=== PATIENT | male | born 1950 | race Hispanic/Latino ===

== ENCOUNTER 2019-02-03 14:54 | Inpatient (IN) | payer MEDICARE ==
[2019-02-03 16:04] LABS: Anion Gap 17 mmol/L (10-20); BUN (Urea Nitrogen) 78 mg/dL (8.4-25.7); Calc. Creatinine Clearance 0 mL/min (70-130); Calcium 8.2 mg/dL (7.8-10.44); Carbon Dioxide 17 mmol/L (23-31); Chloride 108 mmol/L (98-107); Estimated GFR-MDRD 10; Glucose 95 mg/dL (80-115); Potassium 4.7 mmol/L (3.5-5.1); Sodium 137 mmol/L (136-145)
[2019-02-03 16:49] LABS: Bilirubin Negative (Negative); Blood, Urine 1+ (Negative); Clarity Turbid (Clear); Glucose, Urine (Dipstick) Normal (Negative); Leukocyte Negative Leu/uL (Negative); Nitrite Negative (Negative); Protein, Urine (Dipstick) 50 mg/dL (Neg-Trace); Squamous Epithelial 0-3 HPF (0-3); Urobilinogen Normal mg/dL (Less than 2)
[2019-02-03 16:57] LABS: Bacteria/HPF None Seen HPF (None Seen)
[2019-02-03] MEDS ORDERED: Acetaminophen 325 MG TAB PO PRN (17:49)
[2019-02-03] MEDS: Sodium Chloride 0.9% 1,000 ML IV SCH (18:13)
[2019-02-03] MEDS: Heparin 5,000 UNITS/ML VIAL SC SCH (19:08)
--- NOTE | 2019-02-03 19:23 | ULT ---
US Renal Bilateral STANDARD History: Acute renal failure Comparison: None. Findings: Right kidney measures 10.1 x 5.8 x 5.1 cm and the left kidney measures 9.4 x 5.7 x 5.5 cm. Prostate is enlarged. Urinary bladder is unremarkable with prevoid volume of 42 mL. No renal mass, hydronephrosis, or abnormal calcifications. Impression: No evidence for obstructive uropathy. Markedly enlarged prostate.
--- NOTE | 2019-02-03 19:58 | PDOC.EVN ---
Event Note - Event Note Event Note: Spoke to Dr. Mckeon with sound. This patient's PCP is Dr. Brennan so should be admitted to the residents. He has already completed admission so we will assume care at this point. He gave checkout about patient's status -Patient appears to be in acute renal failure of unknown cause. Getting fluids and a nephrology consult at this time.
[2019-02-03 22:14] LABS: Magnesium 2.6 mg/dL (1.6-2.6); Phosphorus 5.1 mg/dL (2.3-4.7)
--- NOTE | 2019-02-04 00:40 | HP ---
CHIEF COMPLAINT: Back and head pain. HISTORY OF PRESENT ILLNESS: This patient is a 68-year-old Kyrgyz-speaking male who was interviewed with the use of [employer] deaf interpreter. The patient reports that he was experiencing some headache and back pain starting on 02/02. He has also had some decreased urine output during that time, although he reports the urine has remained yellow and not overly dark. He felt so bad that he could not go to work today and was instructed by his boss to go see the doctor when he did he was noted to have significant hypotension. They tried to send him to the ER via ambulance. However, he decided to go by a private vehicle and he was seen in the emergency department in [facility]. There, the patient had a blood pressure of systolic in the 80s. He received 2 L of IV fluids and his blood pressure normalized. However, his labs revealed acute renal failure. Subsequently, the patient was transferred to this facility. Here, the patient had a Nru catheter placed with only about 200 mL of relatively normal-appearing urine obtained. REVIEW OF SYSTEMS: The patient had a very small bout of loose stools today. He has had some nausea over the last couple of days. He has had normal appetite and believes he has had normal p.o. intake. He does report cramping in his muscles and some blurred vision in relation to all this as well. PAST MEDICAL HISTORY: Notable for hypertension and hyperlipidemia. PAST SURGICAL HISTORY: None. FAMILY HISTORY: The patient is unaware of any specific medical issues with his parents. SOCIAL HISTORY: The patient is a nonsmoker, nondrinker, and nondrug user. He still works a little bit, but nothing strenuous. He is full code. He lives at home with his son and his son or daughter would be his surrogate decision makers. PHYSICAL EXAMINATION: VITAL SIGNS: Temperature 97.7, pulse 61, respirations 24, BP 120/62, O2 saturation 98% on room air. GENERAL APPEARANCE: Age-appropriate male, in no distress. Awake, alert, oriented, pleasant, cooperative. HEENT: Arcus senilis, but PERRL. No OP lesions. NECK: Supple and symmetric. HEART: Regular rate and rhythm. No murmurs, gallops, or rubs. LUNGS: Clear to auscultation bilaterally with good chest wall expansion and air exchange. ABDOMEN: Soft. Nontender other than some very mild left lower quadrant tenderness to deep palpation. No guarding. No rebound. EXTREMITIES: No cyanosis, clubbing, or edema. PSYCH: Normal affect and behavior. NEURO: The patient appears to be fully intact. Cranial nerves are appropriate. He has normal cognition. No focal deficits. LABORATORY DATA: White count 5.7, hemoglobin 15.9, platelets 273. Sodium 139, potassium 4.3, chloride 100, CO2 18, BUN 80, creatinine 7.34, glucose 120, lactic acid 1.5, calcium 10.2. LFTs normal. Troponin 0.01. Albumin is 5.2, total protein is 8, globulin 3.6. Urinalysis, turbid yellow urine, specific gravity 1.020, 1+ blood with 4 to 6 red cells, 4 to 6 white cells, leukocyte esterase is negative, amorphous crystals 3+, hyaline casts 7 to 10. Chest x-ray is negative. IMPRESSION AND PLAN: 1. Acute renal failure of unclear etiology. The patient is receiving aggressive IV fluid hydration. We will get a renal ultrasound, nephrology consult, and hold his ALCON inhibitor for the time being. Does not appear to be in obstructive uropathy. 2. Acidosis secondary to the acute renal insufficiency. 3. History of hypertension, holding his medications for now. If his blood pressure becomes problematic, we will add something non nephrotoxic. 4. History of hyperlipidemia. We will resume his p.o. statin. 5. Cephalgia secondary to the renal insufficiency and hypotension. 6. Hypotension, appears to be possibly related to some dehydration as it responded very quickly to fluid resuscitation challenges that the patient appears to have been eating and drinking and has no apparent reason for having dehydration. We will continue to follow. At this point he is normalized. Job ID: [id number] [facility]
--- NOTE | 2019-02-04 02:49 | CON ---
DATE OF CONSULTATION: REQUESTING PHYSICIAN: ER physician. REASON FOR CONSULTATION: Acute kidney injury. IMPRESSION: 1. Acute kidney injury, this is likely hemodynamically mediated in the context of poor p.o. intake resulting in hypotension, lasted long enough to progress to #2. 2. Acute tubular necrosis. PLAN: 1. Rehydrate this patient. 2. There is no emergent indication for renal replacement therapy at this point, though this could change depending on the clinical status of this patient. 3. Renally dose all medications and avoid potentially nephrotoxic agents. HISTORY OF PRESENT ILLNESS: A 68-year-old gentleman who was brought in because of weakness and dizziness, but on presentation, the patient noted to be in severe renal failure. The patient of course noted to be hypotensive that required several liters of fluid to stabilize the hemodynamics of this patient. At this time of dictation, the patient is hemodynamically stable. PAST MEDICAL HISTORY: Significant for dyslipidemia, hypertension. REVIEW OF SYSTEMS: As documented in the body of history. All the other systems were reviewed and found not to be significantly related to present illness. SUMMARY: A 68-year-old gentleman who has been down 3 days prior to presentation to the ED, noted to be hypotensive, and in obvious renal failure. Thank you for this consultation. We will follow with you. Job ID: [id number]
[2019-02-04] MEDS: Sodium Chloride 0.9% 1,000 ML IV SCH (03:25)
[2019-02-04 06:07] LABS: #Eosinphils 0.2 thou/uL (0.0-0.7); #Monocytes 0.5 thou/uL (0.11-0.59); #Neutrophils 4.7 thou/uL (1.40-6.50); %Basophils 0.8 % (0.0-1.0); %Eosinophils 2.8 % (0.0-10.0); %Lymphocytes 15.7 % (21.0-51.0); %Monocytes 8.1 % (0.0-10.0); %Neutrophils 72.7 % (42.0-75.0); Hemoglobin 12.8 g/dL (14.0-18.0); Mean Corpuscular HGB CONC 34.3 g/dL (32.0-36.0); Mean Corpuscular Hemoglobin 30.1 pg (27.0-31.0); Mean Corpuscular Volume 87.7 fL (78.0-98.0); Mean Platelet Volume 7.9 fL (7.4-10.4); Platelet Count 210 thou/uL (130-400); RBC Distribution Width 12.6 % (11.5-14.5); Red Blood Cell (RBC) Count 4.27 mill/uL (4.70-6.10); White Blood Cell (WBC) Count 6.4 thou/uL (4.8-10.8)
--- NOTE | 2019-02-04 06:18 | PDOC.FM ---
- Subjective Subjective: Patient doing well overnight. Complains that it stewart to pee and he feels like he needs to urinate constantly. Denies chest pain, shortness of breath, nausea, vomiting, diarrhea, constipation, history of kidney problems, decreased po intake. - Objective MAR Reviewed: Yes Vital Signs & Weight: Vital Signs (12 hours) Temp Pulse Resp BP Pulse Ox 02/04/19 03:55 98.4 F 58 L 16 158/79 H 98 02/04/19 00:00 98.1 F 60 18 170/92 H 97 02/03/19 20:00 97 02/03/19 19:10 97.8 F 54 L 20 123/72 97 Weight Weight 75.8 kg I&O: Net: 500+ mL Urine output: 850mL Result Diagrams: 02/04/19 05:56 02/04/19 05:56 Additional Labs: Laboratory Tests 02/03/19 02/03/19 02/03/19 11:50 11:50 15:36 Sodium 139 137 Potassium 4.3 4.7 Chloride 100 108 H Carbon Dioxide 18 L 17 L Anion Gap 25 H 17 BUN 80 H 78 H Creatinine 7.34 H 5.83 H Estimated GFR (MDRD) 7 10 Lactic Acid 1.5 Radiology Reviewed by me: Yes (Renal US: No obstructive uropathy. Markedly enlarged prostate. ) Phys Exam - Physical Examination Constitutional: NAD diaphoretic, poor hygeine HEENT: PERRLA, moist MMs, sclera anicteric Neck: supple, full ROM Respiratory: no wheezing, no rales, no rhonchi, clear to auscultation bilateral Cardiovascular: RRR, no significant murmur, no rub Gastrointestinal: soft, non-tender, no distention, positive bowel sounds Musculoskeletal: no edema, pulses present Neurological: non-focal, moves all 4 limbs Psychiatric: normal affect, A&O x 3 Skin: no rash, cap refill <2 seconds Dx/Plan - Plan Plan: 68yo , Mongolian speaking male, who presented to the ED for headache, back pain and dizziness. Acute renal failure Unknown etiology, possibly secondary to dehydration. Creatinine 7.34 on admission, repeat 5.83. Will continue to monitor. Fluid resuscitation with IV Normal Saline @ 125mL/hour. He received 2L in the [place] ED. Avoid nephrotoxic agents and renally dose medications. Nephrology consulted, appreciate recommendations. Acute tubular necrosis Hyaline casts seen on UA. Dyslipidemia Simvastatin 40mg Hypertension HOLD HOME MED: Lisinopril 40mg at home. Hydralazine 10mg IV prn for SBP > 180. Will continue to monitor. Dispo: Stable, inpatient Code: Full VTE: SCDs
[2019-02-04 06:37] LABS: Anion Gap 11 mmol/L (10-20); BUN (Urea Nitrogen) 64 mg/dL (8.4-25.7); Calc. Creatinine Clearance 26 mL/min (70-130); Calcium 8.3 mg/dL (7.8-10.44); Carbon Dioxide 17 mmol/L (23-31); Chloride 112 mmol/L (98-107); Estimated GFR-MDRD 22; Glucose 97 mg/dL (80-115); Potassium 4.2 mmol/L (3.5-5.1); Sodium 136 mmol/L (136-145)
[2019-02-04] MEDS ORDERED: hydrALAZINE 20 MG/ML VIAL SLOW IVP PRN (07:00)
[2019-02-04] MEDS ORDERED: Sodium Chloride 0.9% 1,000 ML IV SCH (07:01)
[2019-02-04 07:37] LABS: Creatinine, Urine 323.42 mg/dL (63-166)
[2019-02-04] MEDS: Lactated Ringer's 1,000 ML IV SCH ×2 (08:16→16:45)
[2019-02-04] MEDS: Heparin 5,000 UNITS/ML VIAL SC SCH ×2 (08:17→22:58)
--- NOTE | 2019-02-04 12:20 | PRG ---
DATE OF SERVICE: 02/04/2019 Mr. Munoz is a pleasant 68-year-old male, who does not speak Azeri. He was initially admitted by Franca and was found to be one of our patients, had been transferred to our service. In the event yesterday, for several days have been having some back pain and headache as well as decreased urine output. He could not go to work and he is instructed by his boss to go see a doctor. He went to a facility and was found to be hypotensive. He eventually ended up in [facility] ER, was found to have systolic blood pressure in the 80s. He was given fluids and transferred to our facility for further ongoing care. He was found in our institution to have MICHELET and was seen in consultation by Dr. Pritchard. We appreciate his input. Dr. pritchard feels this is acute tubular necrosis in MICHELET secondary to his hypotension. He recommends that we continue with rehydration and fluid replacement. In the event, his creatinine has dropped from admission of 5.83 to 2.87. He has no electrolyte abnormalities. We will continue with judicious fluid replacement. Job ID: [id number]
--- NOTE | 2019-02-04 21:42 | PRG ---
DATE OF SERVICE: 02/04/2019 SUBJECTIVE: The patient was seen and examined. Noted with the following vital signs. OBJECTIVE: VITAL SIGNS: Afebrile, temperature 97.9, pulse 65, respiratory rate of 20, O2 saturation 100% with blood pressure 150/60. HEENT: Unremarkable. CARDIOVASCULAR SYSTEM: First and second heart sounds were heard. RESPIRATORY SYSTEM: Clear to auscultation. DIGESTIVE SYSTEM: Revealed a benign abdomen. Positive bowel sounds. EXTREMITIES: No peripheral edema. SKIN: No new gross rash. LYMPHATICS: No peripheral lymphadenopathy. LABORATORY INVESTIGATION: Significant for creatinine down to 2.87 with BUN of 64, bicarb of 17, potassium 4.2, phosphorus of 5.1. IMPRESSION: 1. Acute on chronic kidney disease in the context of hemodynamically mediated acute tubular necrosis, which is improving. 2. Metabolic acidosis. PLAN: 1. Discontinue current IV fluid (lactate and start this patient on a bicarb-based infusion at least overnight). 2. Continue renal supportive measures. 3. Avoid potentially nephrotoxic agents and renally dose all medications. 4. Further management to be dependent on the clinical course. Job ID: [id number]
[2019-02-04] MEDS: Sodium Bicarbonate 150 MEQ in Dextrose 5% in Water 1,000 ML IV SCH (22:58)
[2019-02-05 05:43] VITALS: BMI 25.3
--- NOTE | 2019-02-05 05:51 | PDOC.FM ---
- Subjective Subjective: Patient reports he did well overnight. He has no difficulty voiding, and the pain and burning has decreased. Denies chest pain, shortness of breath, nausea, vomiting. - Objective MAR Reviewed: Yes Vital Signs & Weight: Vital Signs (12 hours) Temp Pulse Resp BP Pulse Ox 02/05/19 00:00 98.2 F 54 L 20 113/62 95 02/04/19 20:00 100 02/04/19 18:53 97.9 F 55 L 20 150/60 H 100 Weight Weight 75.92 kg I&O: 02/03/19 02/04/19 02/05/19 06:59 06:59 06:59 Intake Total 1350 Output Total 850 Balance 500 Result Diagrams: 02/04/19 05:56 02/05/19 05:46 Phys Exam - Physical Examination Constitutional: NAD HEENT: moist MMs, sclera anicteric Neck: supple, full ROM Respiratory: no wheezing, no rales, no rhonchi, clear to auscultation bilateral Cardiovascular: RRR, no significant murmur, no rub Gastrointestinal: soft, non-tender, no distention, positive bowel sounds Musculoskeletal: no edema, pulses present Neurological: non-focal, moves all 4 limbs Psychiatric: normal affect, A&O x 3 Skin: no rash, normal turgor Dx/Plan - Plan Plan: 68yo , Brazilian speaking male, who presented to the ED for headache, back pain and dizziness. Acute renal failure Unknown etiology, possibly secondary to dehydration. Cr 7.34 > 5.83 > 2.87. Will continue to monitor. Fluid resuscitation D5 + 150meq Bicarb - per nephrology. Avoid nephrotoxic agents and renally dose medications. Nephrology consulted, appreciate recommendations. Potentially d/c home today, depending on Nephrology recommendations. Acute tubular necrosis Hyaline casts seen on UA. Dyslipidemia Simvastatin 40mg Hypertension HOLD HOME MED: Lisinopril 40mg at home. Hydralazine 10mg IV prn for SBP > 180. Will continue to monitor. Dispo: Stable, inpatient Code: Full VTE: SCDs
[2019-02-05 06:36] LABS: Anion Gap 9 mmol/L (10-20); BUN (Urea Nitrogen) 37 mg/dL (8.4-25.7); Calc. Creatinine Clearance 64 mL/min (70-130); Calcium 8.3 mg/dL (7.8-10.44); Carbon Dioxide 26 mmol/L (23-31); Chloride 108 mmol/L (98-107); Estimated GFR-MDRD 63; Glucose 101 mg/dL (80-115); Potassium 4.4 mmol/L (3.5-5.1); Sodium 139 mmol/L (136-145)
[2019-02-05] MEDS: Heparin 5,000 UNITS/ML VIAL SC SCH (07:59)
[2019-02-05] MEDS ORDERED: Tamsulosin HCl 0.4 MG CAP PO SCH (09:00)
[2019-02-05] MEDS: Sodium Bicarbonate 150 MEQ in Dextrose 5% in Water 1,000 ML IV SCH (09:42)
--- NOTE | 2019-02-05 11:54 | PRG ---
DATE OF SERVICE: 02/05/2019 Mr. Munoz looks and feels much better. His labs have improved markedly with his BUN now 37, creatinine is now 1.15. He was admitted with a BUN of 78 and a creatinine of 5.83. We appreciate the input from Dr. Pritchard. He had initiated a bicarb infusion because of a mild metabolic acidosis secondary to CKD and ATN. In the event, Mr. Munoz is likely ready for discharge today. Job ID: [id number]
[2019-02-05 12:08] VITALS: BP 154/80; TEMP 98.2
--- NOTE | 2019-02-05 21:22 | DIS ---
DATE OF ADMISSION: 02/03/2019 DATE OF DISCHARGE: 02/05/2019 CONSULTS: Nephrology, Dr. Pritchard. PROCEDURES: None. PRIMARY DIAGNOSIS: Acute renal failure with unclear etiology. SECONDARY DIAGNOSES: Acute tubular necrosis, hypertension, hyperlipidemia, and dehydration. DISCHARGE MEDICATIONS: Lisinopril 40, simvastatin 40, and tamsulosin 0.4 mg p.o. daily. DISCONTINUED MEDICATIONS: None. HISTORY OF PRESENT ILLNESS/HOSPITAL COURSE: Mr. Munoz is a 68-year-old male, who presented to the ED via a friend for headache and back pain that started on 02/02. He had noticed decreased urine output stating that his urine had remained yellow and was not dark. However, he stated that he felt that he could not go to work on the day of admission and was instructed by his boss to go see a doctor. He was noted to have significant hypotension at his doctor's office, which prompted his physician to send him to the ER via ambulance, however, he desired to go by private vehicle and was seen in the [place] emergency room. He had a blood pressure of systolic 80. He received 2 L of normal saline IV, which resolved his hypertension, however, labs revealed a creatinine of 7.34 indicating acute renal failure, which prompted his transfer to [place]. He denied any decrease in p.o. intake or excessive sweating. He is unsure why he was dehydrated. His creatinine normalized to 1.15 with aggressive fluid hydration. Dr. Pritchard was consulted and recommended that he be put on IV fluids containing bicarb secondary to his metabolic acidosis, which was corrected by the time of discharge. The patient did well with fluid resuscitation and symptoms resolved. DISPOSITION: Stable. DISCHARGE INSTRUCTIONS: Location: Home. Diet: Heart healthy. Activity: Ad duran. Followup: Follow up with primary care physician within 2 weeks. Job ID: [id number] [facility]
== END 2019-02-05 14:16 | disposition home or self-care (01) | DRG 683 ==
LOC: ERS 14:54 → T4-B 17:51
PROVIDERS: ADMIT Family Medicine; ATTEND Family Medicine
DX: N17.0 Acute kidney failure with tubular necrosis (principal); E87.2 Acidosis; F32.9 Major depressive disorder, single episode, unspecified; I95.9 Hypotension, unspecified; E86.0 Dehydration; I12.9 Hypertensive chronic kidney disease with stage 1 through stage 4 chronic kidney disease, or unspecified chronic kidney disease; N18.9 Chronic kidney disease, unspecified; E78.00 Pure hypercholesterolemia, unspecified; Z79.899 Other long term (current) drug therapy
CPT/HCPCS: 36415; 51702; 76770; 80048; 81003; 81015; 82570; 83735; 84100; 84156; 84300; 85025; 87086; J1644; J7070

== ENCOUNTER 2021-02-28 14:04 | Emergency (ER) | payer MEDICARE ==
[2021-02-28 14:53] LABS: #Lymphocytes 0.8 thou/uL (1.20-3.40); #Monocytes 0.5 thou/uL (0.11-0.59); #Neutrophils 6.2 thou/uL (1.40-6.50); %Basophils 0.1 % (0.0-1.0); %Eosinophils 0.1 % (0.0-10.0); %Lymphocytes 11.2 % (21.0-51.0); %Neutrophils 82.6 % (42.0-75.0); Hemoglobin 13.4 g/dL (14.0-18.0); Mean Corpuscular HGB CONC 32.3 g/dL (32.0-36.0); Mean Corpuscular Hemoglobin 28.5 pg (27.0-31.0); Mean Platelet Volume 7.5 fL (7.4-10.4); Platelet Count 224 thou/uL (130-400); RBC Distribution Width 11.8 % (11.5-14.5); White Blood Cell (WBC) Count 7.5 thou/uL (4.8-10.8)
[2021-02-28 15:24] LABS: Anion Gap 15 mmol/L (10-20); BUN (Urea Nitrogen) 20 mg/dL (8.4-25.7); Calc. Creatinine Clearance 0 mL/min (70-130); Carbon Dioxide 23 mmol/L (23-31); Chloride 101 mmol/L (98-107); Potassium 4.1 mmol/L (3.5-5.1); Sodium 135 mmol/L (136-145)
[2021-02-28 15:25] LABS: ALT (SGPT) 74 U/L (8-55); AST (SGOT) 80 U/L (5-34); Albumin 3.6 g/dL (3.4-4.8); Alkaline Phosphatase 172 U/L (40-110); Bilirubin, Total 1.2 mg/dL (0.2-1.2); Calcium 8.6 mg/dL (7.8-10.44); Globulin 2.8 g/dL (2.4-3.5); Glucose 111 mg/dL (83-110); Protein, Total 6.4 g/dL (5.8-8.1)
[2021-02-28 17:15] LABS: SARS-CoV-2 NAA Rapid Test DETECTED (NotDetected)
== END 2021-02-28 16:32 | disposition home or self-care (01) ==
LOC: ERS 14:04
DX: U07.1 COVID-19 (principal)
CPT/HCPCS: 71045; 80053; 83605; 83880; 84484; 85025; 93005; 99285; U0002; 36415

== ENCOUNTER 2023-10-16 11:33 | Inpatient (IN) | payer MEDICARE ==
[2023-10-08 10:10] VITALS: BMI 20.3
[2023-10-17 06:09] LABS: #Basophils 0.05 10x3/uL (0.0-0.2); %Basophils 0.5 % (0.0-1.0); %Eosinophils 0.7 % (0.0-10.0); %Lymphocytes 9.3 % (21.0-51.0); %Neutrophils 80.1 % (42.0-75.0); Hematocrit 32.9 % (42.0-52.0); Hemoglobin 10.9 g/dL (14.0-18.0); Mean Corpuscular HGB CONC 33.1 g/dL (32.0-36.0); Mean Corpuscular Hemoglobin 29.6 pg (27.0-31.0); Mean Corpuscular Volume 89.4 fL (78.0-98.0); Mean Platelet Volume 9.8 fL (7.4-10.4); Platelet Count 215 10x3/uL (130-400); RBC Distribution Width 13.4 % (11.5-14.5); Red Blood Cell (RBC) Count 3.68 mill/uL (4.70-6.10)
[2023-10-17 07:26] LABS: Anion Gap 10 mmol/L (10-20); BUN (Urea Nitrogen) 28 mg/dL (8.4-25.7); Calc. Creatinine Clearance 34 mL/min (70-130); Calcium 7.9 mg/dL (7.8-10.44); Carbon Dioxide 21 mmol/L (23-31); Chloride 111 mmol/L (98-107); Estimated GFR 48; Glucose 131 mg/dL (83-110); Sodium 138 mmol/L (136-145)
[2023-10-17 09:43] VITALS: BMI 20.3
[2023-10-18 05:48] LABS: Vancomycin, Random 20.9 ug/mL (See Comment)
[2023-10-18 08:24] LABS: #Basophils 0.05 10x3/uL (0.0-0.2); %Basophils 0.4 % (0.0-1.0); %Eosinophils 0.6 % (0.0-10.0); %Lymphocytes 7.3 % (21.0-51.0); %Monocytes 7.3 % (0.0-10.0); %Neutrophils 83.9 % (42.0-75.0); Hematocrit 32.3 % (42.0-52.0); Hemoglobin 10.5 g/dL (14.0-18.0); Mean Corpuscular HGB CONC 32.5 g/dL (32.0-36.0); Mean Corpuscular Hemoglobin 29.7 pg (27.0-31.0); Mean Corpuscular Volume 91.2 fL (78.0-98.0); Mean Platelet Volume 9.6 fL (7.4-10.4); Platelet Count 205 10x3/uL (130-400); RBC Distribution Width 13.5 % (11.5-14.5); Red Blood Cell (RBC) Count 3.54 mill/uL (4.70-6.10)
[2023-10-18 08:55] LABS: Anion Gap 12 mmol/L (10-20); BUN (Urea Nitrogen) 34 mg/dL (8.4-25.7); Calc. Creatinine Clearance 16 mL/min (70-130); Calcium 8.2 mg/dL (7.8-10.44); Carbon Dioxide 19 mmol/L (23-31); Chloride 111 mmol/L (98-107); Estimated GFR 20; Glucose 105 mg/dL (83-110); Potassium 4.6 mmol/L (3.5-5.1); Sodium 137 mmol/L (136-145)
[2023-10-18 12:44] VITALS: TEMP 97.7
[2023-10-18 18:01] VITALS: BP 158/87
== END 2023-10-18 18:18 | disposition home or self-care (01) | DRG 713 ==
LOC: SDC 11:33 → SURG A 20:01
PROVIDERS: ADMIT Urology; ATTEND Urology
PROC: 0VT08ZZ Resection of Prostate, Via Natural or Artificial Opening Endoscopic (ICD-10-PCS; principal; 2023-10-16)
PROC: 0TCB8ZZ Extirpation of Matter from Bladder, Via Natural or Artificial Opening Endoscopic (ICD-10-PCS; 2023-10-16)
DX: N40.1 Benign prostatic hyperplasia with lower urinary tract symptoms (principal); N17.9 Acute kidney failure, unspecified; R33.8 Other retention of urine; N21.0 Calculus in bladder; N32.0 Bladder-neck obstruction; F03.90 Unspecified dementia, unspecified severity, without behavioral disturbance, psychotic disturbance, mood disturbance, and anxiety; I10 Essential (primary) hypertension; D64.9 Anemia, unspecified; N13.9 Obstructive and reflux uropathy, unspecified
CPT/HCPCS: 36415; 36416; 80048; 80202; 82565; 85025; 88300; 88305; C1769; J0360; J0696; J2001; J2175; J2272; J2405; J2704; J3010; J3370-JW; J3480; J3490; S0028